=== PATIENT | male | born 1985 | race Two or more races ===

== ENCOUNTER 2020-06-01 17:22 | Inpatient (IN) | payer OTHER ==
[~2020-06-01] VITALS: Ht 274.3 cm; Wt 5.0 kg
== END 2020-06-11 15:46 | disposition home or self-care (01) | DRG 177 ==
LOC: ER 17:22 → MEDJ 06-02 11:36
PROVIDERS: ADMIT Internal Medicine; ATTEND Internal Medicine
PROC: BB24ZZZ Computerized Tomography (CT Scan) of Bilateral Lungs (ICD-10-PCS; principal; 2020-06-02)
PROC: 3E0F7GC Introduction of Other Therapeutic Substance into Respiratory Tract, Via Natural or Artificial Opening (ICD-10-PCS; 2020-06-02)
PROC: 4A12X4Z Monitoring of Cardiac Electrical Activity, External Approach (ICD-10-PCS; 2020-06-02)
PROC: 8E0ZXY6 Isolation (ICD-10-PCS; 2020-06-02)
PROC: 4A033R1 Measurement of Arterial Saturation, Peripheral, Percutaneous Approach (ICD-10-PCS; 2020-06-11)
DX: U07.1 COVID-19 (principal); J12.89 Other viral pneumonia; R65.10 Systemic inflammatory response syndrome (SIRS) of non-infectious origin without acute organ dysfunction; R09.02 Hypoxemia; R50.9 Fever, unspecified; E87.5 Hyperkalemia